=== PATIENT | male | born 1955 | race Caucasian/White ===

== ENCOUNTER 2023-03-18 08:53 | Outpatient (OUT) | payer MEDICARE, BC, SELFPAY ==
[2023-03-18 09:27] LABS: Basophils Percent Auto 0.7 % (0.2-2.0); Eosinophils Absolute Auto 0.1 10^3/uL (0.0-0.7); Eosinophils Percent Auto 1.7 % (0.9-7.0); Hematocrit 39.5 % (42.0-54.0); Hemoglobin 13.5 g/dL (14.0-18.0); Immature Granulocytes Abs Auto 0.04 10^3/uL (0.00-0.03); Immature Granulocytes Pct Auto 0.9 % (0.0-0.5); Lymphocytes Percent Auto 20.7 % (20.5-60.0); Mean Corpuscular HGB Conc 34.2 g/dL (29.9-35.2); Mean Corpuscular Volume 93.6 fL (80.0-94.0); Mean Platelet Volume 9.4 fL (9.5-13.5); Monocytes Absolute Auto 0.5 10^3/uL (0.3-0.8); Monocytes Percent Auto 10.9 % (1.7-12.0); Neutrophils Percent Auto 65.1 % (43.0-75.0); Platelet Count 152 10^3/uL (150-450); Red Blood Count 4.22 10^6/uL (4.70-6.10); Red Cell Distribution Width 12.9 % (11.0-15.0); White Blood Count 4.6 10^3/uL (4.0-11.0)
[2023-03-18 10:36] LABS: Alanine Aminotransferase 23 U/L (16-63); Albumin Globulin Ratio 1.2; Albumin Level 3.6 g/dL (3.4-5.0); Alkaline Phosphatase 138 U/L (46-116); Anion Gap 12.4; Aspartate Amino Transferase 14 U/L (15-37); BUN Creatinine Ratio 12.9; Calcium 8.2 mg/dL (8.5-10.1); Carbon Dioxide 23.8 mmol/L (21.0-32.0); Chloride 109 mmol/L (98-107); Chol HDL Ratio 2.5; Cholesterol 114 mg/dL (<=200); Estimated GFR (African America 46 (>=60); Estimated GFR (Non-African Ame 38 (>=60); Globulin 2.9 g/dL; Glucose 105 mg/dL (74-106); HDL Cholesterol 46 mg/dL (40-60); LDL Cholesterol Calculated 53.2 mg/dL; Potassium 4.2 mmol/L (3.5-5.1); Sodium 141 mmol/L (136-145); Total Protein 6.5 g/dL (6.4-8.2); Triglycerides 74 mg/dL (<=150); VLDL CHOLESTEROL 14.8 mg/dL
--- NOTE | 2023-03-18 11:23 | CA_ITS ---
Patient: DAISHA MCGARRY Exam Date: 03/18/2023 : 1955 Gender:M Ordering : MRS. ELENI HECK NP Admission #: [id number] Family : Order #: [id number] CLICK HERE TO VIEW EXAM ECHOCARDIOGRAM REPORT PROCEDURE: CA ECHO DOPPLER COMPLETE INDICATIONS: Dilated aortic root, dyspnea, CHF COMPARISON: None. DESCRIPTION: COMPLETE ECHOCARDIOGRAM Real-time transthoracic echocardiography with 2D, M-mode, spectral and color flow Doppler performed. QUALITY: Technical quality was good. LEFT VENTRICLE: Normal chamber size. Borderline left ventricular hypertrophy. LV EF: Global left ventricular systolic function is normal. Calculated left ventricular ejection fraction is 55%. DIASTOLIC: Unable to assess diastolic function. ATRIAL SEPTUM: Inadequately seen. LEFT ATRIUM: Normal chamber size. RIGHT ATRIUM: Mild dilatation. RIGHT VENTRICLE: Normal chamber size. Normal right ventricular systolic function. TRICUSPID VALVE: Normal mobility and thickness. Trivial regurgitation. Unable to assess right-sided pressures due to lack of measurable tricuspid regurgitation. MITRAL VALVE: Normal mobility and thickness. No evidence of mitral valve stenosis. There is no mitral annular calcification. Trivial mitral regurgitation. AORTIC VALVE: Normal trileaflet appearance. No visible sclerosis. Normal leaflet mobility. No evidence of aortic valve stenosis. No aortic regurgitation. AORTIC ROOT: Mildly dilated; measuring 4.2cm. The ascending aorta is mildly dilated at 3.7cm. PULMONIC VALVE: Normal thickness and mobility. No stenosis. Trivial regurgitation. PERICARDIUM: Small, circumferential, pericardial effusion. IVC: Collapses with inspirations. CONCLUSION: 1. Global left ventricular systolic function is normal; visually estimated ejection fraction is 55 to 60% 2. Borderline increased left ventricular wall thickness 3. The right atrium appears dilated 4. The right ventricle is normal in size and systolic function 5. No significant valvular abnormalities 6. The aortic root and ascending aorta are mildly dilated 7. Small, circumferential, pericardial effusion Adult Echocardiography Procedure Report Left Ventricle LVEDD (3.7 - 5.6 cm): 4.46 cm LVESD (2.2 - 4.0 cm): 3.32 cm LVIVS thickness (0.6 - 1.2 cm): 1.03 cm LVPW thickness (0.5 - 1.0 cm): 1.09 cm e': 0.07 m/s E - e': 8.42 LVOT Max Gradient: 3.18 mm[Hg] LVOT Area (cm2): 0.89 m/s Peak Velocity (LVOT): 0.89 m/s Mean Velocity (LVOT): 0.59 m/s LVOT Diameter 2.44 cm Left Ventricular Ejection Fraction: 55.31 % Left Atrium LA Volume Index (2D A2C): 27.90 ml/m2 Left Atrium Systolic Dimension: 4.11 cm Mitral Valve MV E to A Ratio: 0.70 Mitral Valve A-Wave Peak Velocity: 0.81 m/s Mitral Valve E-Wave Peak Velocity: 0.57 m/s Right Ventricle RV Internal Diastolic Dimension: 3.55 cm Aorta AO Root Diam: 4.18 cm Ascending Ao Diam: 3.71 cm Aortic Valve AoV Area (Peak Fritz): 3.50 cm2, 3.50 cm2 AoV Area (VTI): 3.46 cm2, 3.46 cm2 Peak Velocity(Antegrade Flow): 1.19 m/s Peak Gradient(Antegrade Flow): 5.69 mm[Hg] Mean Velocity(Antegrade Flow): 0.87 m/s Mean Gradient(Antegrade Flow): 3.37 mm[Hg] Velocity Time Integral: 27.57 cm Tricuspid Valve Peak Velocity (Regurgitant Flow): 2.40 m/s, 2.33 m/s Pulmonic Valve Mean Gradient: 1.40 mm[Hg] Mean Velocity: 0.55 m/s Peak Velocity: 0.90 m/s, 0.81 m/s Peak Gradient: 2.62 mm[Hg], 3.27 mm[Hg] Right Atrium Right Atrium Systolic Pressure: 49.01 ml, 49.01 ml Dictated by: Sarah Harper M.D. on 03/18/2023 at 12:37 Approved by: Sarah Harper M.D. on 03/18/2023 at 12:42
== END 2023-03-18 08:54 | disposition home or self-care (01) ==
PROVIDERS: Visit Provider Nurse Practitioner Acute Care
DX: I77.810 Thoracic aortic ectasia (principal); R06.09 Other forms of dyspnea; I50.32 Chronic diastolic (congestive) heart failure; E78.2 Mixed hyperlipidemia; N18.32 Chronic kidney disease, stage 3b
CPT/HCPCS: 36415; 80053; 80061; 85025; 93306